=== PATIENT | male | born 1995 | race Caucasian/White ===

== ENCOUNTER 2025-06-10 15:50 | Outpatient (CLI) | payer OTHER, SELFPAY ==
--- NOTE | 2025-06-10 07:30 | SUBM_PTH ---
PATIENT: NADIA METCALF LOC: [facility] U#:[id number] AGE/SX: 29/M ROOM: RE06/10/[address]: Dr. Oleg Rich MD : 1995 BED: DIS: 06/10/2025 SPEC #: [id number] RECD: 06/10/25 16:46 STATUS: DARION REShaista #: [id number] FARHAD: 06/10/25 07:[address]: Oleg Rich DEPT: SURGICAL PATHOLOGY RECD BY: Eyal Palacio ENTERED: 06/11/25 10:38 SP TYPE: SUBMAN GL OTHR DR: Dr. Michael Keane MD No Primary Care Phys Tissues: A - Salivary gland, NOS Procedures: Decalcification bone/plaque Surgery Specimen Level V HEADER OPERATION: Left submandibular gland excision PRE-OP DIAGNOSIS: Sialolithiasis TISSUE SUBMITTED: A- Left submandibular gland MICROSCOPIC DIAGNOSIS A. Submandibular gland, left, sialolithiasis, excision: - Benign serous salivary gland with focal dilated duct demonstrating squamous metaplasia. - Sialolith. MICROSCOPIC DESCRIPTION Slides are reviewed. GROSS DESCRIPTION A. Received in formalin labeled with the patient's name and date of . Designated as left submandibular gland is a 12.6 g, 4.3 x 3.2 x 2.4 cm gordon to light brown, intact salivary gland, devoid of orientation. The external surfaces are inked black. Sectioning reveals gordon, rubbery and focally edematous, lobulated cut surfaces; there is a 0.9 x 0.6 x 0.4 cm gordno-yellow calcification abutting the external surface. No definitive soft tissue lesions are grossly appreciated. 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 [place] 06/11/2025 CPT:27219,43607
--- NOTE | 2025-06-10 07:30 | SUBM_PTH ---
PATIENT: NADIA METCALF LOC: [facility] U#:[id number] AGE/SX: 29/M ROOM: RE06/10/[address]: Dr. Oleg Rich MD : 1995 BED: DIS: 06/10/2025 SPEC #: [id number] RECD: 06/10/25 16:46 STATUS: DARION REShaista #: [id number] FARHAD: 06/10/25 07:[address]: Oleg Rich DEPT: SURGICAL PATHOLOGY RECD BY: Eyal Palacio ENTERED: 06/11/25 10:38 SP TYPE: SUBMAN GL OTHR DR: Dr. Michael Keane MD No Primary Care Phys Tissues: A - Salivary gland, NOS Procedures: Decalcification bone/plaque Surgery Specimen Level V HEADER OPERATION: Left submandibular gland excision PRE-OP DIAGNOSIS: Sialolithiasis TISSUE SUBMITTED: A- Left submandibular gland MICROSCOPIC DIAGNOSIS A. Submandibular gland, left, sialolithiasis, excision: - Benign serous salivary gland with focal dilated duct demonstrating squamous metaplasia. - Sialolith. MICROSCOPIC DESCRIPTION Slides are reviewed. GROSS DESCRIPTION A. Received in formalin labeled with the patient's name and date of . Designated as left submandibular gland is a 12.6 g, 4.3 x 3.2 x 2.4 cm gordon to light brown, intact salivary gland, devoid of orientation. The external surfaces are inked black. Sectioning reveals gordon, rubbery and focally edematous, lobulated cut surfaces; there is a 0.9 x 0.6 x 0.4 cm gordon-yellow calcification abutting the external surface. No definitive soft tissue lesions are grossly appreciated. Plant Anatomist sections are submitted in 3 cassettes, to include decalcification in cassette A1, following decalcification. [place] 06/11/2025 CPT:[id number]
== END 2025-06-10 23:59 | disposition home or self-care (01) ==
LOC: LABSPEC 15:59
PROVIDERS: Referring Provider Otolaryngology; Visit Provider Otolaryngology
DX: K11.5 Sialolithiasis (principal)
CPT/HCPCS: 88307; 88311